=== PATIENT | male | born 1985 | race African-American/Black ===

== ENCOUNTER 2017-06-10 14:32 | Emergency (ER) | payer OTHER ==
[~2017-06-10] VITALS: Ht 182.9 cm; Wt 104.5 kg
[~2017-06-10 14:32] MED LIST: DIFL150T PO; HALO5 PO; NAPR550 PO; NYST100024 TOP; PENI500T PO; TRIH5 PO
[2017-06-10 14:33] VITALS: BP 125/81; PULSE 68; RESP 16; TEMP 98.5; O2SAT 97
--- NOTE | 2017-06-10 14:42 | PD ---
Physical Exam Time Seen by Provider: 14:41 Narrative 31 y/o male with L sided dental pain. Vital signs reviewed. Seen at triage desk. Awaiting bed placement. Data Data Last Documented VS Vital Signs Date Time Temp Pulse Resp B/P Pulse Ox O2 Delivery O2 Flow Rate FiO2 06/10/17 14:33 98.5 68 16 125/81 97 Room Air [facility] Medical Record Reviewed: Yes Supervised Visit with DEANDRE: No Elmer Paniagua Jun 10, 2017 14:42
[2017-06-10] MEDS ORDERED: AMOX500C PO (15:17)
[2017-06-10] MEDS ORDERED: IBUP800T23 PO (15:17)
[2017-06-10] MEDS ORDERED: PERI0.126 SWISH-SPIT (15:17)
--- NOTE | 2017-06-10 15:21 | PD ---
HPI Chief Complaint: Oral / Dental Pain or Problem Time Seen by Provider: 15:16 Travel History International Travel<30 days: No Contact w/Intl Traveler<30days: No Traveled to known affect area: No History of Present Illness HPI 31-year-old male presents to the emergency department with complaint of left lower dental pain 3 days. Denies dental trauma. Denies facial edema, erythema. Denies fever, vomiting. Has been taking extra strength Tylenol for symptom management. No known allergies. Has no other medical complaints. No other modifying factors or associated signs and symptoms. PFSH Past Medical History Cancer: No Diabetes: No Diminished Hearing: No Psychiatric: Yes (FOLLOWED BY BETSY CAMACHO AT [facility]) Immunizations Current: Yes Schizophrenia: Yes Seizures: No Thyroid Disease: No Ulcer: No Past Surgical History Other Surgery: No Social History Alcohol Use: Yes (OCASSION) Tobacco Use: Yes (Couple digs daily) Substance Use: No Allergies-Medications (Allergen,Severity, Reaction): Coded Allergies: No Known Allergies (Verified , 01/11/13) Reported Meds & Prescriptions Reported Meds & Active Scripts Active Peridex Liq (Chlorhexidine Gluconate (Mouth) Liq) 0.12% Soln 15 Ml SWISH-SPIT BID 10 Days Amoxicillin 500 Mg Cap 500 Mg PO BID 10 Days Ibuprofen 800 Mg Tab 800 Mg PO Q6HR PRN Nystatin 100 000 Pow 1 Applic TOP TID Diflucan 150 mg (Fluconazole) 150 Mg Tab 150 Mg PO TODAY Anaprox Ds (Naproxen Sodium) 550 Mg Tab 1 Tab PO Q8 10 Days Pen Vk (Penicillin V Potassium) 500 Mg Tab 500 Mg PO Q8 Reported Haldol (Haloperidol) 5 Mg Tab 10 Mg PO BID Artane 5 Mg Tab (Trihexyphenidyl Hcl) 5 Mg Tab 5 Mg PO BID Review of Systems Except as stated in HPI: all other systems reviewed are Neg Physical Exam Narrative GENERAL: Well-nourished, well-developed male patient, in no acute distress; afebrile, nontoxic-appearing SKIN: Warm and dry. HEAD: Atraumatic. Normocephalic. No facial edema, erythema, tenderness on palpation. No lymphadenopathy. EYES: Pupils equal and round. No scleral icterus. No injection or drainage. ENT: Mucosa pink and moist. Airway patent. MOUTH: Mucous membranes moist, no lesions, tongue and gums appear normal. Tooth #18 with tenderness on palpation; large dental cavity and decay noted. Surrounding gingiva is without erythema, edema, drainage. No obvious abscess noted. NECK: Trachea midline. No lymphadenopathy. CARDIOVASCULAR: Regular rate. RESPIRATORY: No accessory muscle use. GASTROINTESTINAL: Rounded. MUSCULOSKELETAL: No obvious deformities. No clubbing. No cyanosis. No edema. NEUROLOGICAL: Awake and alert. Oriented 3. No obvious cranial nerve deficits. Motor grossly within normal limits. Normal speech. PSYCHIATRIC: Appropriate mood and affect; insight and judgment normal. Data Data Last Documented VS Vital Signs Date Time Temp Pulse Resp B/P Pulse Ox O2 Delivery O2 Flow Rate FiO2 06/10/17 14:33 98.5 68 16 125/81 97 Room Air MDM Medical Decision Making Medical Screen Exam Complete: Yes Emergency Medical Condition: Yes Medical Record Reviewed: Yes Differential Diagnosis Dentalgia, infected dental caries, dental abscess Narrative Course 31-year-old male with dentalgia to left lower tooth #18. No facial erythema or edema. No lymphadenopathy. Patient is afebrile and nontoxic-appearing. Denies fever, vomiting. Emergency dental information sheet provided for follow- up. Instructed patient to follow up with dentist. Amoxicillin, Peridex mouth rinse, ibuprofen prescribed for home. Instructed patient to follow up with primary care provider. Patient verbalizes understanding and agreement with treatment plan. Patient is medically cleared and stable for discharge. Discussed reasons to return to the emergency department. Patient agrees with treatment plan. The patients vital signs are stable and the patient is stable for outpatient follow-up and treatment. Patient discharged home, stable and in no acute distress. Diagnosis Primary Impression: Dentalgia Additional Impression: Dental caries Referrals: [facility] Dentist Primary Care Physician Patient Instructions: Dental Abscess (ED), Dental Caries (ED), General Instructions, Toothache (ED) Departure Forms: Tests/Procedures, Work Release Enter return to work date: Jun 10, 2017 Additional Instructions: Complete full course of antibiotics Ibuprofen or Tylenol as directed and as needed to reduce pain and inflammation Use Peridex as directed for oral hygiene Warm or cool compresses to the affected area Follow-up with dentist Follow-up with primary care provider Return to emergency department immediately with worsening of symptoms Med/Other Pt SpecificInfo: Prescription(s) given Scripts Chlorhexidine Gluconate (Mouth) Liq (Peridex Liq)0.12% Soln15 Ml SWISH-SPIT BID 10 Days Ref 0 Prov:Laura Gonzalez 06/10/17 Amoxicillin 500 Mg [id number] Mg PO BID 10 Days Ref 0 Prov:Laura Gonzalez 06/10/17 Ibuprofen 800 Mg [id number] Mg PO Q6HR PRN (PAIN) #30 TAB Ref 0 Prov:Laura Gonzalez 06/10/17 Disposition: 01 DISCHARGE HOME Condition: Stable Laura Gonzalez Jun 10, 2017 15:21
== END 2017-06-10 16:10 | disposition home or self-care (01) ==
LOC: NEPK 14:32
DX: K02.9 Dental caries, unspecified (principal); F20.9 Schizophrenia, unspecified; F17.210 Nicotine dependence, cigarettes, uncomplicated; Z79.899 Other long term (current) drug therapy
CPT/HCPCS: 99283

== ENCOUNTER 2017-10-23 16:02 | Emergency (ER) | payer OTHER ==
[~2017-10-23] VITALS: Ht 193 cm; Wt 105.0 kg
[~2017-10-23 16:02] MED LIST changes: +AMOX500C PO; +IBUP1TAB7 PO; +PERI0.126 SWISH-SPIT
[2017-10-23 16:04] VITALS: BP 155/101; PULSE 98; RESP 14; TEMP 98.2; O2SAT 99
[2017-10-23] MEDS ORDERED: PENI500T PO (16:49)
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
[2017-10-23] MEDS ORDERED: HALO10TA PO (17:19)
== END 2017-10-23 17:25 | disposition home or self-care (01) ==
LOC: NEPD 16:02
DX: K02.9 Dental caries, unspecified (principal); R10.13 Epigastric pain; F17.210 Nicotine dependence, cigarettes, uncomplicated
CPT/HCPCS: 99283

== ENCOUNTER 2018-02-27 15:58 | Emergency (ER) | payer OTHER ==
[~2018-02-27] VITALS: Ht 193 cm; Wt 100.0 kg
[~2018-02-27 15:58] MED LIST changes: -DIFL150T PO; +HALO10TA PO; -HALO5 PO; -IBUP1TAB7 PO; -NAPR550 PO; -NYST100024 TOP; -TRIH5 PO
[2018-02-27 16:14] VITALS: BP 124/84; PULSE 86; RESP 18; TEMP 98; O2SAT 98
--- NOTE | 2018-02-27 16:43 | RADRPT ---
EXAM DATE/TIME: 02/27/2018 16:27 [place] COMPARISON: No previous studies available for comparison. INDICATIONS : Left foot pain, denies injury MEDICAL HISTORY : None. SURGICAL HISTORY : None. ENCOUNTER: Initial ACUITY: 2 days PAIN SCORE: 9/10 LOCATION: Left Foot FINDINGS: Three view examination of the left foot demonstrates no soft tissue swelling, dislocation, or fractur e. The tarsal bones appear intact. The interphalangeal and metatarsophalangeal joints are intact. The calcaneus is intact. Incidental note is made of the well-corticated lucency at the inferior asp ect of the calcaneus. There is minimal hypertrophic change at the Achilles and plantar aponeurosis at tachment sites of the posterior calcaneus. Bony mineralization is normal. CONCLUSION: No acute disease. Vladimir Morse MD on February 27, 2018 at 16:40 Board Certified Radiologist. This report was verified electronically.
[2018-02-27] MEDS ORDERED: IBUP1TAB7 PO (19:06)
--- NOTE | 2018-02-27 19:06 | PD ---
HPI Chief Complaint: Pain: Acute or Chronic Time Seen by Provider: 19:02 Travel History International Travel<30 days: No Contact w/Intl Traveler<30days: No Traveled to known affect area: No History of Present Illness HPI 32-year-old male presents emergency department for evaluation of left foot pain. He woke up with this yesterday morning. He does not recall any injury. States pain is on the dorsal aspect of his foot. It is moderate in severity, constant, exacerbated with ambulation. Denies any alterations in sensation. He has no other symptoms to report. [facility] Past Medical History Medical History: Denies Significant Hx Diabetes: No Diminished Hearing: No Psychiatric: Yes (FOLLOWED BY BETSY CAMACHO AT [facility]) Immunizations Current: Yes Schizophrenia: Yes Seizures: No Thyroid Disease: No Ulcer: No Past Surgical History Other Surgery: No Social History Alcohol Use: Yes (OCASSION) Tobacco Use: Yes (Couple dips daily) Substance Use: No Allergies-Medications (Allergen,Severity, Reaction): Coded Allergies: No Known Allergies (Verified Adverse Reaction, Unknown, 10/23/17) Reported Meds & Prescriptions Reported Meds & Active Scripts Active Ibuprofen 800 Mg Tab 800 Mg PO Q8H PRN Penicillin V Potassium 500 Mg Tab 500 Mg PO Q6H 10 Days Peridex Liq (Chlorhexidine Gluconate (Mouth) Liq) 0.12% Soln 15 Ml SWISH-SPIT BID 10 Days Amoxicillin 500 Mg Cap 500 Mg PO BID 10 Days Reported Haloperidol 10 Mg Tab 10 Mg PO BID Review of Systems Except as stated in HPI: all other systems reviewed are Neg Physical Exam Narrative GENERAL: Well-nourished, well-developed male patient in no acute distress.. SKIN: Focused skin assessment warm/dry. HEAD: Normocephalic. EYES: No scleral icterus. No injection or drainage. NECK: Supple, trachea midline. No JVD or lymphadenopathy. CARDIOVASCULAR: Regular rate and rhythm without murmurs, gallops, or rubs. RESPIRATORY: Breath sounds equal bilaterally. No accessory muscle use. GASTROINTESTINAL: Abdomen soft, non-tender, nondistended. MUSCULOSKELETAL: No cyanosis, or edema. Distal pulses are palpable. Cap refill within normal limits. No obvious deformity. Patient has full range of motion of the left ankle and left toes. No erythema. Tenderness elicited palpation on the dorsal aspect of the left medial foot. BACK: Nontender without obvious deformity. No CVA tenderness. Data Data Last Documented VS Vital Signs Date Time Temp Pulse Resp B/P (MAP) Pulse Ox O2 Delivery O2 Flow Rate FiO2 02/27/18 16:14 98.0 86 18 124/84 (97) 98 Orders Orders Foot, Complete ([id number]) (02/27/18 ) Ed Discharge Order (02/27/18 19:04) Shoe Post Op (02/27/18 ) Ibuprofen (Motrin) (02/27/18 19:15) Shoe Cast (02/27/18 ) MDM Medical Decision Making Medical Screen Exam Complete: Yes Emergency Medical Condition: Yes Medical Record Reviewed: Yes Differential Diagnosis Tendinitis versus gout versus osteoarthritis Narrative Course 32-year-old male presents emergency department for evaluation left foot pain since yesterday morning. Patient appears without distress. The foot is without erythema, edema, or deformity. Patient is given ibuprofen here. He is provided a postop shoe for some support and comfort. He is encouraged to follow -up with primary care provider and podiatry. He agrees to return immediately with any acute worsening symptoms. Diagnosis Primary Impression: Left foot pain Referrals: Hydrology Professor Primary Care Physician Patient Instructions: General Instructions, Plantar Fasciitis (ED), Plantar Fasciitis Exercises (ED) Additional Instructions: Follow-up with a primary care provider Seek podiatry evaluation if symptoms persist Wear postop shoe for support Return immediately to emergency department with any acute worsening symptoms Med/Other Pt SpecificInfo: Prescription(s) given Scripts Ibuprofen (Ibuprofen) 800 Mg Tab 800 MG PO Q8H Y for Pain/Inflammation, #30 TAB 0 Refills Prov: Varsha Finn 02/27/18 Disposition: 01 DISCHARGE HOME Condition: Stable Varsha Finn Feb 27, 2018 19:06
[2018-02-27] MEDS ORDERED: IBUPROFEN 800 MG TAB PO ONE (19:15)
== END 2018-02-27 19:30 | disposition home or self-care (01) ==
LOC: NEPD 15:58
DX: M79.672 Pain in left foot (principal); F20.9 Schizophrenia, unspecified; F17.290 Nicotine dependence, other tobacco product, uncomplicated
CPT/HCPCS: 73630; 99283; L3260